=== PATIENT | female | born 1990 | race Asian ===

== ENCOUNTER 2023-10-26 12:33 | Emergency (ER) | payer OTHER, SELFPAY ==
[2023-10-26 12:39] VITALS: BP 129/92; PULSE 72; RESP 16; O2SAT 95; BMI 39.3
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
== END 2023-10-26 13:15 | disposition home or self-care (01) ==
LOC: ED 13:14
PROVIDERS: Emergency Provider Family Medicine
DX: S16.1XXA Strain of muscle, fascia and tendon at neck level, initial encounter (principal)
CPT/HCPCS: 99282; 99283; 99284